=== PATIENT | female | born 1955 | race Two or more races ===

== ENCOUNTER 2023-11-06 06:07 | Day surgery (SDC) | payer OTHER ==
[~2023-11-06] VITALS: Ht 149.9 cm; Wt 54.4 kg
[~2023-11-06 06:07] MED LIST: ASPI1TAB20 PO; ATOR10TA52 PO; CHOL500046 PO; LEV50T PO
[2023-11-06] MEDS ORDERED: PHENYLEPHRINE HCL 10 MG/ML VL IV ONE (06:08)
[2023-11-06] MEDS ORDERED: ceFAZolin 2 GM/D5W100ml 100 ML IV ONE (06:14)
[2023-11-06] MEDS ORDERED: BUPIVACAINE 0.5% P/F INJ 10 ML VIAL ONE (06:52)
[2023-11-06] MEDS ORDERED: ROCURONIUM 10MG/ML 10ML VIAL IV ONE (07:15)
[2023-11-06] MEDS ORDERED: SUCCINYLCHOLINE CHLORIDE 20 MG/ML 10ML VIAL IV ONE (07:15)
[2023-11-06] MEDS ORDERED: MIDAZOLAM HCL 2MG/2ML 2ml VIAL (1mg/ml) ONE (07:16)
[2023-11-06] MEDS ORDERED: fentaNYL CITRATE 100 MCG/2 ML VL ONE (07:16)
[2023-11-06] MEDS ORDERED: PROPOFOL 10 MG/ML 20 ML IV ONE (07:17)
[2023-11-06] MEDS ORDERED: ONDANSETRON HCL 4 MG/2 ML VIAL ONE (07:17)
[2023-11-06] MEDS ORDERED: SODIUM CHLORIDE LOCK 10 ML ONE (07:17)
[2023-11-06] MEDS ORDERED: ACCU-CHEK COMFORT CURVE STRIP VI ONE (07:30)
[2023-11-06] MEDS ORDERED: MORPHINE SULFATE INJ 2 MG/ml SYRG IV PRN (07:30)
[2023-11-06] MEDS ORDERED: HYDROmorphone HCL 2 MG/ML VL/or syr IV PRN ×2 (07:30)
[2023-11-06] MEDS ORDERED: METOCLOPRAMIDE HCL 5MG/ml INJ 2ml VIAL IV PRN (07:30)
[2023-11-06] MEDS ORDERED: DexAMETHasone SOD PHOS 10MG/1ML VIAL INJ ONE (07:52)
[2023-11-06 08:14] VITALS: PULSE 93; RESP 12; TEMP 96.7; O2SAT 100
[2023-11-06 09:29] VITALS: BP 165/87; PULSE 74; RESP 14; O2SAT 96
== END 2023-11-06 09:40 | disposition home or self-care (01) ==
LOC: SUR 06:07
PROVIDERS: ATTEND Orthopaedic Surgery Sports Medicine
DX: M65.321 Trigger finger, right index finger (principal); M65.331 Trigger finger, right middle finger; E11.9 Type 2 diabetes mellitus without complications; Z79.84 Long term (current) use of oral hypoglycemic drugs
CPT/HCPCS: 26055; 82962; J0330; J1100; J2250; J2405; J2704; J3010; J3490